=== PATIENT | male | born 1965 | race Caucasian/White ===

== ENCOUNTER → 2022-04-29 14:46 | Outpatient (BNVA) | payer OTHER, SELFPAY | PROVIDERS: PCP Internal Medicine; Visit Provider Internal Medicine | DX: S13.4XXA Sprain of ligaments of cervical spine, initial encounter (principal); V53.0XXA Driver of pick-up truck or van injured in collision with car, pick-up truck or van in nontraffic accident, initial encounter | CPT/HCPCS: 99203 ==

== ENCOUNTER → 2022-05-01 15:27 | Outpatient (BNVA) | payer OTHER, SELFPAY | PROVIDERS: PCP Internal Medicine; Visit Provider Physician Assistant | DX: S13.4XXA Sprain of ligaments of cervical spine, initial encounter (principal); V53.0XXA Driver of pick-up truck or van injured in collision with car, pick-up truck or van in nontraffic accident, initial encounter | CPT/HCPCS: 99213 ==